=== PATIENT | female | born 1980 | race Caucasian/White ===

== ENCOUNTER → 2017-05-30 | Outpatient (CLI) | payer BC ==
[2017-05-30 14:51] LABS: Basophils % (A) 0 %; Eosinophils # (A) 0.2 k/uL (0-0.7); Eosinophils % (A) 2 %; HCT 42.2 % (34.0-46.0); HGB 13.7 gm/dL (11.4-16.0); Lymphocytes # (A) 2.3 k/uL (1.0-4.8); Lymphocytes % (A) 23 %; MCH 29.8 pg (25.0-35.0); MCHC 32.6 g/dL (31.0-37.0); MCV 91.6 fL (80.0-100.0); Mean Platelet Volume 7.6; Monocytes # (A) 0.6 k/uL (0-1.0); Monocytes % (A) 6 %; Neutrophils # (A) 6.9 k/uL (1.3-7.7); Neutrophils % (A) 69 %; Platelet Count 304 k/uL (150-450); RDW 13.4 % (11.5-15.5); WBC 10.1 k/uL (3.8-10.6)
== END | disposition home or self-care (01) ==
LOC: LABWHC1 14:31
PROVIDERS: ATTEND Obstetrics & Gynecology
DX: Z01.812 Encounter for preprocedural laboratory examination (principal)
CPT/HCPCS: 36415; 85025

== ENCOUNTER 2017-06-08 06:04 | Day surgery (SDC) | payer BC ==
[2017-06-05 14:22] VITALS: BMI 24.2
--- NOTE | 2017-06-07 07:43 | P.HPOB ---
History of Present Illness H&P Date: 06/07/17 Chief Complaint: High-grade cervical dysplasia. This patient is a pleasant 37-year-old 0 para 0 female who initially presented to my office in March for a routine [employer] visit. Pap smear at that time showed ASCUS however colposcopy performed in April showed high-grade dysplasia (HARPER-2/HARPER-3. Cyst. Endocervical curettings were negative. She now presents for colposcopy and LEEP excision of this area. Review of Systems Genitourinary: Reports as per HPI Past Medical History Past Medical History: No Reported History Additional Past Medical History / Comment(s): Patient does report some gastrointestinal irregularities. History of Any Multi-Drug Resistant Organisms: None Reported Additional Past Surgical History / Comment(s): wisdom teeth removed, mole removed near eye in teens Past Anesthesia/Blood Transfusion Reactions: No Reported Reaction Past Psychological History: No Psychological Hx Reported Smoking Status: Former smoker Past Alcohol Use History: None Reported Past Drug Use History: None Reported - Past Family History Mother Family Medical History: No Reported History Medications and Allergies Home Medications Medication Instructions Recorded Confirmed Type L.acidoph,Paracasei, B.lactis 1 each PO DAILY 06/05/17 06/05/17 History [Probiotic] Allergies Allergy/AdvReac Type Severity Reaction Status Date / Time ivory soap AdvReac Unknown Uncoded 06/05/17 14:11 Childhood Exam - OBG Physical Exam Abdomen: bowel sounds normal, no diffuse tenderness, no bruit present, no guarding noted, no hepatomegaly, no splenomegaly, no mass Vulva: both: normal Vagina: normal moisture, no discharge Cervix: no lesion, no discharge Uterus: normal size, normal contour Results Biopsies of the cervix done on April 18 showed HARPER-2/HARPER-3 of the ectocervix. Endocervix appeared negative with some detached fragments. Assessment and Plan Assessment: This is a pleasant 37-year-old 0 para 0 female with high-grade ectocervical dysplasia. Plan is colposcopy with LEEP excision of the echo and endocervix. Patient and I have discussed the surgery in detail and she understands that this surgery has risks of infection, bleeding, possible cervical incompetence in future loss. All the patient's questions are answered and a written consent is obtained. (1) High grade squamous intraepithelial cervical dysplasia Status: Acute Code(s): R87.613 - HIGH GRADE INTREPITH LESION CYTO SMR CRVX ( HGSIL) SNOMED Code(s): 854190734
[~2017-06-08 06:04] MED LIST: DEXAMETHASONE SOD PHOSPHATE 10 MG/ML 1 ML VIAL IV ONE; HYDROmorphone 0.5 MG/0.5 ML SYRINGE IVP PRN; LACTATED RINGERS 1,000 ML IV SCH; LIDOCAINE 1% 20 ML VIAL (10MG/ML) FOR IV START INTRADERMA PRN; MIDAZOLAM 2 MG/2 ML VIAL IV PRN; ONDANSETRON 4 MG/2 ML VIAL IVP ONE; Pre Op ABX Message 1 EACH MISC MISCELLANE ONE; SCOPOLAMINE 1.5MG/72HR PATCH TRANSDERM ONE
[2017-06-08] MEDS ORDERED: fentaNYL (PF) 50 MCG/ML 2 ML AMP ONE (07:16)
[2017-06-08] MEDS ORDERED: PROPOFOL 10 MG/ML 20 ML VIAL IV ONE (07:16)
[2017-06-08] MEDS ORDERED: KETOROLAC 30 MG/ML 1 ML VIAL ONE (07:16)
[2017-06-08] MEDS ORDERED: LIDOCAINE 1% INJ 10MG/ML (20 ML MDV) ONE (07:16)
[2017-06-08] MEDS ORDERED: ACETAMINOPHEN IV (For NPO) 1,000 MG/100 ML VIAL ONE (07:16)
[2017-06-08] MEDS ORDERED: MIDAZOLAM 2 MG/2 ML VIAL ONE (07:16)
[2017-06-08] MEDS ORDERED: FERRIC SUBSULFATE (MONSELS) JAR TOPICAL ONE (07:22)
[2017-06-08] MEDS ORDERED: IODINE/POTASS IOD (LUGOLS) BTL TOPICAL ONE (07:23)
--- NOTE | 2017-06-08 07:50 | P.OP ---
Date of Procedure: 06/08/17 Preoperative Diagnosis: Severe cervical dysplasia Postoperative Diagnosis: Same Procedure(s) Performed: Colposcopy with LEEP excision of the ectocervix and endocervix. Anesthesia: GETA Surgeon: Juan Manuel Tristan Estimated Blood Loss (ml): 10 Urine output (ml): 75 Pathology: other (Ectocervix and endocervix) Condition: stable Disposition: PACU Indications for Procedure: Please see dictated H&P for intimate details of this patient's admission. Brief summary is a pleasant 37-year-old 0 para 0 female with high-grade cervical dysplasia on ectocervical biopsy. Patient now presents for LEEP excision of this area. Operative Findings: This patient had mild acetowhite changes as demarcated in the office. Description of Procedure: This patient is taken to the operating room where she is laid in the supine position. She subsequently undergoes general endotracheal anesthesia without incident. An adequate level of anesthesia she's placed in dorsal lithotomy position. She has a vaginal perineal prep and drape. Bladder is drained for 75 mL of clear urine. Colposcopy is then performed using Lugol solution. Using a large LEEP loop at a 6070 cutting cautery setting, I make one pass and remove the entire transformation zone of the ectocervix. A second small LEEP loop was then used to remove the endocervical portion. Cauterization is done of the ectocervix and endocervical margins. Excellent hemostasis is noted. Monsel solution is applied for added hemostasis. At this point the procedure is ended. All counts are correct 3. There are no complications. Patient was taken to the recovery room in satisfactory condition.
[2017-06-08 07:56] VITALS: TEMP 96.9
[2017-06-08 08:37] VITALS: RESP 18
[2017-06-08 08:47] VITALS: BP 123/80; PULSE 56
== END 2017-06-08 09:13 | disposition home or self-care (01) ==
LOC: OR 06:04
PROVIDERS: ATTEND Obstetrics & Gynecology
DX: D06.7 Carcinoma in situ of other parts of cervix (principal); N85.8 Other specified noninflammatory disorders of uterus; Z87.891 Personal history of nicotine dependence; Z91.09 Other allergy status, other than to drugs and biological substances
CPT/HCPCS: 81025; 88305; 57461; J2250; J1100; J2405; J2001; J3010; J1885; J0131; J2704; 88307